=== PATIENT | female | born 1935 | race Two or more races ===

== ENCOUNTER 2016-06-02 02:37 | Observation (INO) | payer MEDICARE, OTHER ==
--- NOTE | ~2016-06-02 | DS ---
Discharge Summary [facility] [address] [place]. [address] NAME: SEBASTIAN DUBON : 39 STATUS : DIS Roro PAT#: [id number] AGE: 80 ADM/REG DATE : 06/02/16 MR#: [id number] REPORT SERV DATE: 06/03/16 DICTATED BY: JOHNNY POWELL DATE: 06/02/16 REPORT STATUS : Draft TRANSCRIBED BY: MODL DATE: 06/02/16 ADMISSION DATE: 06/02/2016 DISCHARGE DATE: 06/02/2016 DISCHARGE DIAGNOSES: 1. Acute right lower extremity deep venous thrombosis, femoral vein, extensive. 2. Diabetes type 2. 3. History of hypertension. 4. Recent colonoscopy, performed on 05/30/2016 with internal hemorrhoids and polyp removal by Dr. Liriano. DISCHARGE MEDICINES: Nexium 40 mg daily, Januvia 100 mg daily, amiloride 5 mg daily, DiaBeta 5 mg three times, Forxiga 5 mg daily; Xarelto 15 mg twice a day for 21 days, then 20 mg daily thereafter for a total of three months. HISTORY PRESENT ILLNESS: This is a pleasant 80-year-old female presented with acute right lower extremity swelling to [facility]. Please see the initial H and P of Aki Srivastava M.D., as the patient was admitted to the Hospitalist Service for further evaluation and treatment. Subsequently transferred to the [facility]. Consultations were placed to Vascular Surgery for consideration of surgery and further evaluation. PROCEDURES AND IMAGING DURING THIS ADMISSION: Include the venous Doppler ultrasound of lower extremities showing deep venous thrombosis present in the right lower extremity extending from the common femoral vein through the calf. HOSPITAL COURSE: The patient was seen by Vascular Surgery, but did not recommend any surgery at this time, but initiation of blood thinner therapy and possibility of a hypercoagulable workup done as an outpatient. She had been started and continued on her heparin drip. I started Xarelto during this hospitalization, and I have written a prescription for that to follow her at discharge. I have instructed her to follow up with her primary care in the next two to three weeks. Follow up with GI as previously scheduled. She was discharged to home in stable condition on 06/02/2016 with the above medicines and follow up plan, questions were answered at bedside. She is in agreement with this plan going forward. Most recent lab work today, on 06/02/2016, sodium 139, potassium 4.1, BUN of 15, creatinine 0.91. White blood cells 7.5, hemoglobin 14.8, hematocrit 43.4. [facility] Johnny Powell NP / [id number] Discharge Summary [address] [address] NAME: SEBASTIAN DUBON : 39 STATUS : DIS Roro PAT#: [id number] AGE: 80 ADM/REG DATE : 06/02/16 MR#: [id number] REPORT SERV DATE: 06/03/16 DICTATED BY: JOHNNY POWELL [facility] DATE: 06/02/16 REPORT STATUS : Draft TRANSCRIBED BY: MODL DATE: 06/02/16 CC: Stanley Abad M.D.
[~2016-06-02 02:37] MED LIST: ACTOS45 PO; AMILOR/HCTZ1 TAB PO; AMILORID5B PO; ARTHROTEC 50 PO; CIP5 PO; DIABET2.5 PO; DIABETA5 PO; FARXIGA5 PO; GLUCOPHAGE1000 MG PO; JANUVIA100 MG PO; KLOR-CON M2020 MEQ PO; NEXIUM40 PO; [UNRECOGNIZED DRUG - OTHER] PO
[2016-06-02 07:20] LABS: BASOPHILS 0.4 %; BASOPHILS ABSOLUTE 0.03 10/3/uL (0.0-0.16); EOSINOPHILS ABSOLUTE 0.52 10/3/uL (0.0-0.53); HEMATOCRIT 43.4 % (36.0-48.0); HEMOGLOBIN 14.8 g/dL (12.0-16.0); IMMATURE GRANULOCYTES 0.1 %; IMMATURE GRANULOCYTES ABSOLUTE 0.01 10/3/uL (0.0-0.11); LYMPHOCYTES 26.7 %; LYMPHOCYTES ABSOLUTE 1.99 10/3/uL (0.67-4.30); MEAN CORPUS HGB CONC 34.1 g/dL (32.0-36.0); MEAN CORPUSCULAR HEMOGLOB 29.6 pg (26.0-34.0); MEAN CORPUSCULAR VOLUME 86.8 fL (80-100); MEAN PLATELET VOLUME 9.6 fL (9.2-13.0); MONOCYTES 9.9 %; MONOCYTES ABSOLUTE 0.74 10/3/uL (0.21-1.20); NEUTROPHILS 55.9 %; NEUTROPHILS ABSOLUTE 4.16 10/3/uL (2.02-8.40); PLATELET COUNT 201 10/3/uL (150-400); RBC DISTRIBUTION WIDTH 13.5 % (12.0-16.0); WHITE BLOOD CELLS 7.5 10/3/uL (4.5-10.5)
[2016-06-02 07:21] LABS: MANUAL DIFF NO %
[2016-06-02 07:41] LABS: ALBUMIN 3.4 G/DL (3.5-5.0); ALKALINE PHOSPHATASE 77 U/L (45-117); BUN (BLOOD UREA NITROGEN) 15 MG/DL (6-23); CALCIUM, SERUM 9.3 MG/DL (8.5-10.4); CHLORIDE, SERUM 102 MMOL/L (96-112); CO2 (CARBON DIOXIDE) 28 MMOL/L (24-34); CREATININE 0.91 MG/DL (0.55-1.02); GFR AFRICAN AMERICAN 70 ML/MIN (>=60); GFR NON AFRICAN AMERICAN 60 ML/MIN (>=60); GLUCOSE, SERUM 140 MG/DL (60-99); POTASSIUM, SERUM 4.1 MMOL/L (3.5-5.3); SGOT(AST) 21 U/L (5-40); SGPT(ALT) 21 U/L (5-65); SODIUM, SERUM 139 MMOL/L (135-148); TOTAL PROTEIN 7.6 G/DL (6.0-8.5)
[2016-06-02 07:42] LABS: A/G RATIO 0.8 (0.7-1.9); GLOBULIN 4.2 G/DL (2.5-4.1); TOTAL BILIRUBIN 1.6 MG/DL (0-1.2)
[2016-06-02] MEDS ORDERED: XARELTO15 MG PO (14:22)
== END 2016-06-02 15:53 | disposition home or self-care (01) ==
LOC: 1SO 02:37
PROVIDERS: Hospitalist
DX: I82.411 Acute embolism and thrombosis of right femoral vein (principal); E11.9 Type 2 diabetes mellitus without complications; I10 Essential (primary) hypertension; K21.9 Gastro-esophageal reflux disease without esophagitis; M19.90 Unspecified osteoarthritis, unspecified site; Z79.899 Other long term (current) drug therapy; Z87.891 Personal history of nicotine dependence; Z90.49 Acquired absence of other specified parts of digestive tract; Z98.890 Other specified postprocedural states
CPT/HCPCS: 80053; 82962; 83036; 83735; 85025; 85730; A9270-GY; G0378